=== PATIENT | female | born 1995 | race African-American/Black ===

== ENCOUNTER 2018-02-20 03:12 | Emergency (ER) | payer OTHER ==
[~2018-02-20] VITALS: Ht 172.7 cm; Wt 113.4 kg
[2018-02-20 03:30] VITALS: BP 141/61
== END 2018-02-20 03:52 | disposition home or self-care (01) ==
LOC: ER 03:12
DX: T16.2XXA Foreign body in left ear, initial encounter (principal); X58.XXXA Exposure to other specified factors, initial encounter; Y93.89 Activity, other specified; Y92.89 Other specified places as the place of occurrence of the external cause; Y99.8 Other external cause status